=== PATIENT | female | born 1970 | race Caucasian/White ===

== ENCOUNTER → 2016-11-12 | Outpatient (REF) | payer BC | LOC: M SFHCWAGY 15:38 | PROVIDERS: ATTEND Nurse Practitioner Women's Health | DX: R87.610 Atypical squamous cells of undetermined significance on cytologic smear of cervix (ASC-US) (principal) ==

== ENCOUNTER → 2017-01-29 | Outpatient (REF) | payer BC | LOC: M LAB REF 18:27 | PROVIDERS: ATTEND Specialist | DX: R87.612 Low grade squamous intraepithelial lesion on cytologic smear of cervix (LGSIL) (principal) ==

== ENCOUNTER → 2017-10-10 | Outpatient (REF) | payer BC | LOC: M SFHCWAGY 10:57 | PROVIDERS: ATTEND Nurse Practitioner Women's Health | DX: Z01.419 Encounter for gynecological examination (general) (routine) without abnormal findings (principal); Z11.51 Encounter for screening for human papillomavirus (HPV); R85.610 Atypical squamous cells of undetermined significance on cytologic smear of anus (ASC-US) ==

== ENCOUNTER → 2017-10-10 | Outpatient (CLI) | payer BC ==
--- NOTE | 2017-10-10 12:48 | REPMRS ---
Patient History The patient states she had a clinical breast exam in 09/2017. Patient is postmenopausal and has history of other cancer at age 44. Family history of colorectal cancer in maternal uncle. Digital Woman Screen Mammo: October 10, 2017 - Exam #: [id number] Bilateral CC and MLO view(s) were taken. Technologist: Yanelis Faria, Technologist Prior study comparison: October 10, 2016, digital woman screen mammo performed at [facility]. October 13, 2015, digital woman screen mammo performed at [facility] to [facility]. FINDINGS: There are scattered fibroglandular densities. There has been no change in the appearance of the mammogram from the prior studies. There is a mild amount of residual fibroglandular tissue which is fairly symmetric. There is no interval development of dominant mass, architectural distortion, or clustered microcalcification suggestive of malignancy. ASSESSMENT: BI-RADS/ACR category 1 mammogram. Negative. Recommendation Routine screening mammogram in 1 year (for women over age 40). This mammogram was interpreted with the aid of an FDA-approved computer-aided dectection system. Electronically Signed By: Farrukh Hendricks MD 10/10/17 [id number]
== END ==
LOC: M WHC 10:06
PROVIDERS: ATTEND Nurse Practitioner Women's Health
DX: Z12.31 Encounter for screening mammogram for malignant neoplasm of breast (principal); Z78.0 Asymptomatic menopausal state

== ENCOUNTER → 2018-09-04 | Outpatient (REF) | payer BC ==
[2018-09-04 12:37] LABS: ALBUMIN 3.7 GM/DL (3.2-5.2); ALBUMIN/GLOBULIN RATIO 1.32 (1.00-1.93); ALKALINE PHOSPHATASE 63 U/L (45-117); ALT/SGPT 16 U/L (12-78); ANION GAP 7 MEQ/L (8-16); AST/SGOT 12 U/L (7-37); BILIRUBIN,TOTAL 0.4 MG/DL (0.2-1.0); BLOOD UREA NITROGEN 18 MG/DL (7-18); CALCIUM LEVEL 9.2 MG/DL (8.5-10.1); CARBON DIOXIDE LEVEL 28 MEQ/L (21-32); CHLORIDE LEVEL 105 MEQ/L (98-107); CHOLESTEROL LEVEL 176 MG/DL (<200); CHOLESTEROL RISK RATIO 2.983 (<5); CREATININE FOR GFR 0.72 MG/DL (0.55-1.30); GLOMERULAR FILTRATION RATE > 60.0 (>58); GLUCOSE, FASTING 90 MG/DL (70-100); HDL CHOLESTEROL 59 MG/DL (>40); LDL CHOLESTEROL 102 MG/DL (<100); NON-HDL-C 117 MG/DL; POTASSIUM SERUM 4.3 MEQ/L (3.5-5.1); SODIUM LEVEL 140 MEQ/L (136-145); TOTAL PROTEIN 6.5 GM/DL (6.4-8.2); TRIGLYCERIDES LEVEL 74 MG/DL (<150)
== END ==
LOC: M SFHCLERA 08:51
DX: Z00.00 Encounter for general adult medical examination without abnormal findings (principal)
CPT/HCPCS: 84443

== ENCOUNTER → 2018-10-13 | Outpatient (CLI) | payer BC ==
--- NOTE | 2018-10-13 15:56 | REPMRS ---
Patient History The patient states she had a clinical breast exam in 09/2018. Patient is postmenopausal and has history of other cancer at age 44. Family history of colorectal cancer in maternal uncle. No Hormone Replacement Therapy Digital Woman Screen Mammo: October 13, 2018 - Exam #: [id number] Bilateral CC and MLO view(s) were taken. Technologist: Yanelis Faria, Technologist Prior study comparison: October 10, 2017, digital woman screen mammo performed at [facility]. October 10, 2016, digital woman screen mammo performed at [facility]. October 13, 2015, digital woman screen mammo performed at [facility]. FINDINGS: There are scattered fibroglandular densities. There has been no change in the appearance of the mammogram from the prior studies. There is a mild amount of scattered fibroglandular density which is fairly symmetric. There is no interval development of dominant mass, architectural distortion, or clustered microcalcification suggestive of malignancy. 3-D tomosynthesis shows no additional findings. Assessment: BI-RADS/ACR category 1 mammogram. Negative. Recommendation Routine screening mammogram of both breasts in 1 year (for women over age 40). This patient's Lifetime Breast Cancer RIsk is estimated at 6.9 %. This mammogram was interpreted with the aid of an FDA-approved computer-aided dectection system. Electronically Signed By: Ovi Keita MD 10/13/18 [id number]
== END ==
LOC: M WHC 10:22
PROVIDERS: ATTEND Nurse Practitioner Women's Health
DX: Z12.31 Encounter for screening mammogram for malignant neoplasm of breast (principal); Z78.0 Asymptomatic menopausal state; Z85.9 Personal history of malignant neoplasm, unspecified

== ENCOUNTER → 2018-10-13 | Outpatient (REF) | payer BC ==
[2018-10-16 14:15] LABS: HPV HYBRID CAPTURE II Negative (Negative)
== END ==
LOC: M SFHCWAGY 11:07
PROVIDERS: ATTEND Nurse Practitioner Women's Health
DX: Z12.4 Encounter for screening for malignant neoplasm of cervix (principal)
CPT/HCPCS: 87624; G0123

== ENCOUNTER → 2018-11-25 | Outpatient (CLI) | payer BC ==
--- NOTE | 2018-11-25 11:40 | REP ---
Clinical: Fever of unknown origin . Comparison: None . Technique: PA and lateral. Findings: The mediastinum and cardiac silhouette are normal. The lung daily are clear and without acute consolidation, effusion, or pneumothorax. The skeletal structures are intact and normal. Impression: 1. No acute cardiopulmonary process. Electronically Signed by Levon Ricketts MD 11/25/2018 11:32 A
== END ==
LOC: M LRY 11:16
PROVIDERS: ATTEND Nurse Practitioner Family
DX: R50.9 Fever, unspecified (principal)

== ENCOUNTER 2019-08-15 23:04 | Emergency (ER) | payer BC ==
[~2019-08-15] VITALS: Ht 152.4 cm; Wt 63.6 kg
[2019-08-15] MEDS ORDERED: NAPR220C14 PO (23:32)
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
[2019-08-16 03:17] VITALS: BP 119/74
== END 2019-08-16 03:40 | disposition home or self-care (01) ==
LOC: M ED 23:04
DX: S50.01XA Contusion of right elbow, initial encounter (principal); S30.811A Abrasion of abdominal wall, initial encounter; S20.229A Contusion of unspecified back wall of thorax, initial encounter; S10.83XA Contusion of other specified part of neck, initial encounter; S00.83XA Contusion of other part of head, initial encounter; Y04.0XXA Assault by unarmed brawl or fight, initial encounter; Y07.03 Male partner, perpetrator of maltreatment and neglect; Y92.009 Unspecified place in unspecified non-institutional (private) residence as the place of occurrence of the external cause; M50.30 Other cervical disc degeneration, unspecified cervical region

== ENCOUNTER → 2019-10-13 | Outpatient (REF) | payer BC ==
[~2019-10-13] MED LIST: NAPR220C14 PO
[2019-10-13 16:39] LABS: HEMATOCRIT 42.8 % (36.0-47.0); HEMOGLOBIN 13.6 g/dl (12.0-15.5); MEAN CORPUSCULAR HEMOGLOBIN 28.8 pg (27.0-33.0); MEAN CORPUSCULAR HGB CONC 31.8 g/dl (32.0-36.5); MEAN CORPUSCULAR VOLUME 90.5 fl (80.0-96.0); PLATELET COUNT, AUTOMATED 230 10^3/uL (150-450); RED BLOOD COUNT 4.73 10^6/uL (4.00-5.40); WHITE BLOOD COUNT 4.6 10^3/uL (4.0-10.0)
[2019-10-13 16:48] LABS: ALBUMIN 4.3 GM/DL (3.2-5.2); ALT/SGPT 18 U/L (12-78); BILIRUBIN,TOTAL 0.5 MG/DL (0.2-1.0); BLOOD UREA NITROGEN 14 MG/DL (7-18); CALCIUM LEVEL 9.4 MG/DL (8.5-10.1); CARBON DIOXIDE LEVEL 30 MEQ/L (21-32); CHLORIDE LEVEL 108 MEQ/L (98-107); CHOLESTEROL LEVEL 174 MG/DL (<200); CREATININE FOR GFR 0.84 MG/DL (0.55-1.30); GLOMERULAR FILTRATION RATE > 60.0 (>51); GLUCOSE, FASTING 91 MG/DL (70-100); HDL CHOLESTEROL 58 MG/DL (>40); LDL CHOLESTEROL 96 MG/DL (<100); NON-HDL-C 116 MG/DL; POTASSIUM SERUM 4.7 MEQ/L (3.5-5.1); SODIUM LEVEL 143 MEQ/L (136-145); TOTAL PROTEIN 7.3 GM/DL (6.4-8.2); TRIGLYCERIDES LEVEL 98 MG/DL (<150)
== END ==
LOC: M SFHCCLAY 10:15
PROVIDERS: ATTEND Family Medicine
DX: Z00.00 Encounter for general adult medical examination without abnormal findings (principal); Z12.11 Encounter for screening for malignant neoplasm of colon; E78.00 Pure hypercholesterolemia, unspecified

== ENCOUNTER → 2019-10-14 | Outpatient (REF) | payer BC | LOC: M PLALAB 13:21 | PROVIDERS: ATTEND Nurse Practitioner Women's Health | DX: Z12.4 Encounter for screening for malignant neoplasm of cervix (principal) | CPT/HCPCS: 87624; G0123 ==

== ENCOUNTER → 2019-10-14 | Outpatient (CLI) | payer BC ==
--- NOTE | 2019-10-14 15:02 | REPMRS ---
Patient History The patient states she had a clinical breast exam in 2018. Family history of colorectal cancer in maternal uncle. No Hormone Replacement Therapy Digital Woman Screen Mammo: October 14, 2019 - Exam #: [id number] Bilateral CC and MLO view(s) were taken. Technologist: Rachna Rajan, Technologist Prior study comparison: October 13, 2018, bilateral digital woman screen mammo performed at [facility]. October 10, 2017, digital woman screen mammo performed at [facility] [place] [facility]. October 10, 2016, digital woman screen mammo performed at [facility]. FINDINGS: There are scattered fibroglandular densities. There has been no change in the appearance of the mammogram from the prior studies. There is a mild amount of scattered fibroglandular density which is fairly symmetric. There is no interval development of dominant mass, architectural distortion, or grouped microcalcification suggestive of malignancy. 3-D tomosynthesis shows no additional findings. Assessment: BI-RADS/ACR category 1 mammogram. Negative Mammogram. Recommendation Routine screening mammogram of both breasts in 1 year (for women over age 40). This patient's Lifetime Breast Cancer Risk is estimated at 6.8 %. This mammogram was interpreted with the aid of an FDA-approved computer-aided dectection system. Electronically Signed By: Ovi Keita MD 10/14/19 [id number]
== END ==
LOC: M WHC 12:43
PROVIDERS: ATTEND Nurse Practitioner Women's Health
DX: Z12.31 Encounter for screening mammogram for malignant neoplasm of breast (principal)

== ENCOUNTER → 2020-08-11 | Outpatient (REF) | payer BC ==
[~2020-08-11] MED LIST changes: +CYAN100049 PO; +MULTCAP PO
[2020-08-11 12:38] LABS: HEMATOCRIT 40.2 % (36.0-47.0); HEMOGLOBIN 13.1 g/dl (12.0-15.5); MEAN CORPUSCULAR HEMOGLOBIN 28.8 pg (27.0-33.0); MEAN CORPUSCULAR HGB CONC 32.6 g/dl (32.0-36.5); MEAN CORPUSCULAR VOLUME 88.4 fl (80.0-96.0); PLATELET COUNT, AUTOMATED 211 10^3/uL (150-450); RED BLOOD COUNT 4.55 10^6/uL (4.00-5.40); WHITE BLOOD COUNT 3.7 10^3/uL (4.0-10.0)
[2020-08-11 13:03] LABS: BLOOD UREA NITROGEN 13 MG/DL (7-18); CALCIUM LEVEL 8.9 MG/DL (8.5-10.1); CARBON DIOXIDE LEVEL 28 MEQ/L (21-32); CHLORIDE LEVEL 109 MEQ/L (98-107); CREATININE FOR GFR 0.75 MG/DL (0.55-1.30); GLOMERULAR FILTRATION RATE > 60.0 (>51); GLUCOSE, FASTING 87 MG/DL (70-100); POTASSIUM SERUM 4.6 MEQ/L (3.5-5.1); SODIUM LEVEL 141 MEQ/L (136-145)
== END ==
LOC: M SFHCCLAY 07:12
PROVIDERS: ATTEND Family Medicine
DX: E78.00 Pure hypercholesterolemia, unspecified (principal); G89.29 Other chronic pain

== ENCOUNTER → 2020-08-18 | Outpatient (REF) | payer BC | LOC: M SFHCCLAY 07:12 | PROVIDERS: ATTEND Family Medicine | DX: Z01.818 Encounter for other preprocedural examination (principal); E78.00 Pure hypercholesterolemia, unspecified ==

== ENCOUNTER → 2020-08-25 | Outpatient (CLI) | payer BC | LOC: M LABSMTC 10:51 | PROVIDERS: ATTEND Anesthesiology | DX: Z11.59 Encounter for screening for other viral diseases (principal); Z20.828 Contact with and (suspected) exposure to other viral communicable diseases | CPT/HCPCS: C9803; U0003 ==

== ENCOUNTER → 2020-09-15 | Outpatient (REF) | payer BC ==
[~2020-09-15] MED LIST changes: +OXYC1TAB23 PO; +ZOFR4TAB16 PO
[2020-09-16 11:31] LABS: HEMATOCRIT 40.8 % (36.0-47.0); HEMOGLOBIN 12.9 g/dl (12.0-15.5); MEAN CORPUSCULAR HEMOGLOBIN 28.2 pg (27.0-33.0); MEAN CORPUSCULAR HGB CONC 31.6 g/dl (32.0-36.5); MEAN CORPUSCULAR VOLUME 89.1 fl (80.0-96.0); PLATELET COUNT, AUTOMATED 224 10^3/uL (150-450); RED BLOOD COUNT 4.58 10^6/uL (4.00-5.40); WHITE BLOOD COUNT 5.1 10^3/uL (4.0-10.0)
[2020-09-16 12:04] LABS: BLOOD UREA NITROGEN 11 MG/DL (7-18); CALCIUM LEVEL 9.1 MG/DL (8.5-10.1); CARBON DIOXIDE LEVEL 30 MEQ/L (21-32); CHLORIDE LEVEL 106 MEQ/L (98-107); CREATININE FOR GFR 0.87 MG/DL (0.55-1.30); GLOMERULAR FILTRATION RATE > 60.0 (>51); GLUCOSE, FASTING 80 MG/DL (70-100); POTASSIUM SERUM 4.8 MEQ/L (3.5-5.1); SODIUM LEVEL 141 MEQ/L (136-145)
== END ==
LOC: M LABDRAWC 10:51
PROVIDERS: ATTEND Plastic Surgery Surgery of the Hand
DX: I78.1 Nevus, non-neoplastic (principal); N64.81 Ptosis of breast; L98.7 Excessive and redundant skin and subcutaneous tissue

== ENCOUNTER → 2020-09-15 | Outpatient (CLI) | payer BC ==
[~2020-09-15] MED LIST changes: -OXYC1TAB23 PO; -ZOFR4TAB16 PO
== END ==
LOC: M LABSMTC 10:20
PROVIDERS: ATTEND Anesthesiology
DX: Z01.812 Encounter for preprocedural laboratory examination (principal); Z20.828 Contact with and (suspected) exposure to other viral communicable diseases

== ENCOUNTER 2020-09-20 07:02 | Day surgery (SDC) | payer SELFPAY ==
[~2020-09-20] VITALS: Ht 152.4 cm; Wt 65.3 kg
[~2020-09-20 07:02] MED LIST changes: +BACITRACIN PWD 50,000 UNITS VIAL As Ordered ONE; +BUPIVACAINE LIPOSOME/PF 1.3% 20ML VIAL (13.3MG/ML)(EXPAREL)(C9290 PER1MG) As Ordered ONE; +HEPARIN SOD (PORCINE) 5000UNITS/ML 1ML VIAL/SYRINGE SQ ONE; +LIDOCAINE 1% MDV 20ML VIAL SQ PRN; +LR 1,000 ML IV ONE; +ceFAZolin SOD 1 GM in D5W MINI-BAG PLUS 50 ML IV ONE
[2020-09-20] MEDS ORDERED: MIDAZOLAM INJ 2MG/2ML VIAL (J2250 PER 1MG) As Ordered ONE (07:54)
[2020-09-20] MEDS ORDERED: propofoL 200 MG/20 ML VIAL As Ordered ONE ×2 (07:54→10:07)
[2020-09-20] MEDS ORDERED: LIDOCAINE 2% 100MG/5ML SDV (FOR ANES.) As Ordered ONE (07:54)
[2020-09-20] MEDS ORDERED: dexameTHASONE 4 MG/ML 1ML VIAL (J1100 PER 1MG) As Ordered ONE (07:54)
[2020-09-20] MEDS ORDERED: ROCURONIUM BROMIDE 50 MG/5 ML VIAL As Ordered ONE ×3 (07:54→11:37)
[2020-09-20] MEDS ORDERED: METOCLOPRAMIDE INJ 10MG/2ML VIAL (J2765 PER 1) As Ordered ONE (07:54)
[2020-09-20] MEDS ORDERED: fentaNYL 250 MCG/5 ML INJECTION (J3010) As Ordered ONE (07:54)
[2020-09-20] MEDS ORDERED: ONDANSETRON 4MG/2ML VIAL As Ordered ONE ×2 (07:54→09:46)
[2020-09-20] MEDS ORDERED: EPINEPHrine INJ 1 MG/ML 1ML AMP As Ordered ONE (08:04)
[2020-09-20] MEDS ORDERED: LIDOCAINE 1% MDV 20ML VIAL As Ordered ONE (08:04)
[2020-09-20] MEDS ORDERED: SCOPOLAMINE 1MG TRANSDERMAL PATCH TOP ONE (08:15)
[2020-09-20] MEDS ORDERED: LACRILUBE (AKWA TEARS) OPHTH OINT 3.5 GM As Ordered ONE (08:50)
[2020-09-20] MEDS ORDERED: ePHEDrine SULFATE 25 MG/5 ML(5MG/ML) SYRINGE As Ordered ONE ×2 (09:09→11:30)
[2020-09-20] MEDS ORDERED: HYDROmorphone HCL 2 MG/ML 1ML VIAL (J1170) As Ordered ONE (09:46)
[2020-09-20] MEDS ORDERED: SUGAMMADEX SODIUM 500 MG/5 ML VIAL (BRIDION) As Ordered ONE (09:46)
[2020-09-20] MEDS ORDERED: ACETAMINOPHEN 1000MG 100ML IV BTL (OFIRMEV) (J0131 PER 10MG) As Ordered ONE (09:46)
[2020-09-20] MEDS ORDERED: GLYCOPYRROLATE INJ 0.2 MG/ML 2 ML VIAL As Ordered ONE (11:34)
[2020-09-20] MEDS ORDERED: ceFAZolin 1GM VIAL (J0690 PER 500MG) As Ordered ONE (12:48)
--- NOTE | 2020-09-20 13:33 | POST-OPPD ---
Postoperative Procedure Note Date Of Procedure: Sep 20, 2020 PREOPERATIVE DIAGNOSIS: Bilateral breast ptosis, panniculitis, Left upper arm lipoma, abdominal pigmented lesion. POSTOPERATIVE DIAGNOSIS: same FINDINGS: Breast ptosis, pannus, abdominal pigmented lesions, Left upper arm mass PROCEDURE: Abdominoplasty, bilateral mastopexy, excision left upper arm lipoma, and pigmented lesions upper abdomen. SURGEON: Dr Marino PERSONNEL WORKER: Dr Carter ANESTHESIA: General SPECIMENS: Left arm mass, Abdominal pigmented lesions, Pannus ESTIMATED BLOOD LOSS: 100 cc REPLACED: none DRAINS: 10 mm NATALIIA drain x 4 COMPLICATIONS: none POSTOPERATIVE CONDITION: stable BANDAR MARINO DO Sep 20, 2020 13:33
[2020-09-20] MEDS: LR 1,000 ML IV SCH (13:39)
[2020-09-20] MEDS ORDERED: MORPHINE 4 MG/ML 1ML VIAL/SYRINGE (J2270) IV PRN (13:45)
[2020-09-20] MEDS ORDERED: ACETAMINOPHEN TAB 650MG DOSE (2X325MG) PO PRN (13:45)
[2020-09-20] MEDS ORDERED: fentaNYL 100 MCG/2 ML INJECTION (J3010) As Ordered ONE (13:48)
[2020-09-20] MEDS: fentaNYL 100 MCG/2 ML INJECTION (J3010) IV PRN ×4 (13:50→14:28)
[2020-09-20] MEDS ORDERED: LR 1,000 ML IV SCH (14:00)
[2020-09-20] MEDS ORDERED: METOCLOPRAMIDE INJ 10MG/2ML VIAL (J2765 PER 1) IV PRN (14:00)
[2020-09-20] MEDS ORDERED: ONDANSETRON 4MG/2ML VIAL IV PRN (14:00)
[2020-09-20] MEDS ORDERED: PERCOCET 5MG/325MG TAB PO PRN (14:00)
[2020-09-20] MEDS ORDERED: HYDROMORPHONE HCL 0.5 MG/ 0.5 ML SYRINGE (J1170 PER 1) IV PRN (15:00)
[2020-09-20] MEDS: ONDANSETRON 4MG/2ML VIAL IV PRN ×2 (16:19→20:48)
[2020-09-20] MEDS: ceFAZolin SOD 1 GM in D5W MINI-BAG PLUS 50 ML IV SCH (16:19)
[2020-09-20 16:30] VITALS: BP 107/64
[2020-09-20 17:00] VITALS: BP 111/69
[2020-09-20 18:00] VITALS: BP 104/68
[2020-09-20 19:00] VITALS: BP 102/69
[2020-09-20 20:00] VITALS: BP 109/65
[2020-09-20] MEDS: PERCOCET 5MG/325MG TAB PO PRN (20:48)
[2020-09-20 21:00] VITALS: BP_SYST 100; BP_DIAS 57; BP_DIAS 58
[2020-09-21 01:14] VITALS: BP 113/64
[2020-09-21] MEDS: ceFAZolin SOD 1 GM in D5W MINI-BAG PLUS 50 ML IV SCH ×2 (01:23→08:23)
[2020-09-21] MEDS: PERCOCET 5MG/325MG TAB PO PRN ×3 (01:25→13:14)
[2020-09-21 05:34] VITALS: BP 105/58
[2020-09-21] MEDS: LR 1,000 ML IV SCH (05:36)
[2020-09-21] MEDS: ONDANSETRON 4MG/2ML VIAL IV PRN ×2 (07:24→13:14)
[2020-09-21 10:00] VITALS: BP 105/73
--- NOTE | 2020-09-21 10:11 | IPNPDOC ---
Subjective General Date Seen: Sep 21, 2020 Subject Chief Complaint/History The patient is a 50-year-old female admitted with a reason for visit of Excessive And Redundant Skin & Subcutaneous Tissue. Patient s/p abdominoplasty, bilateral mastopexy, left upper arm lipoma removal POD 1. Doing well. Ambulated, barker out, urinated well. Pain controlled with Percocet. Nausea improved. No other complains. Current Medications Current Medications Current Medications Medications (Trade) Dose Ordered Sig/Lu Route PRN Reason Start Time Stop Time Status Last Admin Dose Admin Acetaminophen (Tylenol Tab) 650 mg Q6H PRN PO MILD PAIN (PS 1-4) 09/20/20 13:45 Cefazolin Sodium 1 gm/Dextrose 50 ml @ 100 mls/hr Q8H IV 09/20/20 17:00 09/21/20 08:23 Fentanyl Citrate (Sublimaze) 25 mcg Q5MP PRN IV PAIN LEVEL 5-10 09/20/20 14:00 09/20/20 14:30 DC 09/20/20 13:55 Hydromorphone HCl (Dilaudid) 0.4 mg Q5MP PRN IV PAIN LEVEL 4-7 09/20/20 15:00 09/20/20 16:00 DC 09/20/20 14:53 Lactated Ringer's 1,000 ml @ 75 mls/hr [id number] IV 09/20/20 13:39 09/21/20 05:36 Lactated Ringer's 1,000 ml @ 100 mls/hr Q10H IV 09/20/20 14:00 09/20/20 15:00 DC Lidocaine HCl (LIDOCAINE 1% MDV 20ml) 0.1 ml ONCE PRN SQ DISCOMFORT BEFORE IV START 09/20/20 06:00 09/20/20 14:46 DC Metoclopramide HCl (REGLAN INJection) 10 mg Q6HP PRN IV NAUSEA OR VOMITING 09/20/20 14:00 09/20/20 14:59 DC 09/20/20 14:59 Morphine Sulfate (Morphine Sulfate Inj) 4 mg Q4HP PRN IV SEVERE PAIN (PS 8-10) 09/20/20 13:45 Ondansetron HCl (ZOFRAN INJection) 4 mg Q4H PRN IV NAUSEA OR VOMITING 09/20/20 13:45 09/21/20 07:24 Ondansetron HCl (ZOFRAN INJection) 4 mg Q4HP PRN IV NAUSEA OR VOMITING 09/20/20 14:00 09/20/20 15:00 DC Oxycodone/ Acetaminophen (Percocet 5mg/ 325mg Tablet) 1 tab ASDIRECTED PRN PO PAIN LEVEL 1-4 09/20/20 14:00 09/20/20 15:00 DC 09/20/20 14:13 Oxycodone/ Acetaminophen (Percocet 5mg/ 325mg Tablet) 2 tab Q4HP PRN PO PAIN LEVEL 4-7 09/20/20 13:45 09/21/20 07:24 Allergies Coded Allergies: No Known Allergies (Unverified , 09/19/20) Objective Physical Examination Examination GENERAL APPEARANCE:Patient seen, laying in bed, awake, alert, and oriented. Comfortable, in no acute distress. SKIN: Warm and moist. BREAST: Right and left soft, non-tender incisions intact. NATALIIA drains: 5/5 cc/24 hr. NAC: Viable, warm, symmetrical, mild post-op ecchymosis, no expanding hematoma. LUNGS: Clear to auscultation bilaterally. No wheezing appreciated. HEART: No chest wall abnormalities. Regular rate and rhythm with no murmurs appreciated. ABDOMEN: Abdomen is soft, non-tender, non-distended. Incision intact. Umbilicus viable. NATALIIA drains with serosanguinous drainage. 50/40 cc/24hr each drain. EXTREMITIES: No edema identified. No calf tenderness. Vital Signs Vital Signs Date Time Temp Pulse Resp B/P (MAP) Pulse Ox O2 Delivery O2 Flow Rate FiO2 09/21/20 07:54 18 09/21/20 05:34 98.9 70 105/58 (74) 98 Room Air 09/20/20 14:10 2 I&Os I&O- Last 24 Hours up to 6 AM 09/21/20 06:00 Intake Total 3830 ml Output Total 1770 ml Balance 2060 ml Impression S/p abdominoplasty, mastopexy, lipoma removal. Doing well. Stable for discharge tonight. NATALIIA drains to go home, monitor. Dressing changed Keep abdominal binder, bra on at all times. F/up plastic surgery next week Plan / VTE VTE Prophylaxis Ordered?: Yes BANDAR MARINO DO Sep 21, 2020 10:11
[2020-09-21] MEDS ORDERED: ZOFR4TAB16 PO (10:15)
[2020-09-21] MEDS ORDERED: OXYC1TAB23 PO (10:15)
--- NOTE | 2020-10-12 16:47 | RO ---
OPERATIVE NOTE DATE OF OPERATION: 09/20/2020 PREOPERATIVE DIAGNOSIS: Bilateral breast ptosis, panniculitis, left upper arm lipoma and abdominal lesions x2. POSTOPERATIVE DIAGNOSIS: Bilateral breast ptosis, panniculitis, left upper arm lipoma and abdominal lesions x2. FINDINGS: Breast ptosis, pannus, abdominal pigmented lesions and left upper arm mass. PROCEDURE: Abdominoplasty, bilateral mastopexy, excision, left upper arm lipoma and pigmented lesions, upper abdomen. ATTENDING SURGEON: Jaki Renteria DO INVENTORY CONTROL SUPERVISOR: Dr. Carter ANESTHESIA: General. SPECIMEN: Left arm mass and abdominal pigmented lesion and pannus. ESTIMATED BLOOD LOSS: 100 mL REPLACEMENT: No replacements. DRAINS: 10 mm Stanley-Ponce drains x4. COMPLCATIONS: None. PROCEDURE: This is a 50-year-old female who was complaining of tissue loss and lipodystrophy, status post weight loss. She has mild pannus that she would like to take care of as well as bilateral breast ptosis. The patient is also finding that she has a mass on the left upper arm which has recently grown and it is causing her discomfort. She would like to have it removed and she also has two pigmented lesions in her upper abdomen that she would like to remove in the same surgery if possible. Risks, benefits and alternatives were discussed with the patient regarding all those procedures and she ready to proceed. The day of surgery, she was marked in an upright position about her abdominoplasty and her breast and then she was brought into the operating room, placed in supine position. Preoperative antibiotics were given and general anesthesia is induced. We introduced a Joseph catheter in the bladder without any difficulties with clear yellow urine and then she was prepped and draped in the usual sterile fashion. We started our procedure on the right side. The nipple areolar complex was outlined 42 mm in diameter and then we made our incision around the nipple areola and midline. The central pedicle was then created using electrocautery and breast was then moved to its new location about 20 cm from the sternal notch. Hemostasis was obtained with electrocautery. Exparel was used as a block to the pectoralis and throughout the breast and then we started our closing at the pillars. Excess tissue was measured, tailored and removed. The vertical limb was 7 cm. Excess tissue was measured and resected, creating the horizontal scar which was closed with 3-0 Monocryl sutures. A 10 mm Stanley-Ponce drain was placed through the lateral portion of the horizontal incision. The nipple areolar complex was sutured in place with 3-0 and 4-0 Monocryls and 5-0 plain gut sutures. While my hospital clinic assistant is closing the nipple areola, I started on the opposite side, a similar procedure carried out on left side with nipple areolar complex, outlining it 42 mm in diameter. The central pedicle is then created and then the breast is moved up en bloc to its new location for the nipple areola at 20 cm from the sternal notch. The pillars are closed with interrupted 3-0 Monocryl sutures. Excess is tailored and resected, mirroring the right side. The vertical limb was 7 cm. Excess inferiorly is resected, creating the horizontal scar and 10 mm Stanley-Ponce drain is placed through the lateral portion. The nipple areola complex is sutured in place with 3-0 and 4-0 Monocryl sutures and the 5-0 plain running stitch. While having that completed, we also made a 2 cm incision on the left upper arm and the mass is easily identified subcutaneously and it is completely resected. It is a fat containing, encapsulated tumor which is removed. The wound is irrigated and closed in layers by hospital clinic assistant with 3-0 Monocryl sutures. Then we turned our attention to the abdominal portion of our procedure. The two pigmented lesions were resected in elliptical fashion and sent to pathology and then the lower abdominal incision was carried out 6 cm from the labial crease. Sharp dissection with electrocautery and PEAK cautery is done until the rectus fascia is identified and then we continued our dissection superiorly until the umbilicus. The rhomboid incision is made around the umbilicus and then we continued our dissection, lifting up the flap until the xiphoid process superiorly and the costal margins laterally. Hemostasis was obtained using electrocautery and the rectus muscle was viewed. There was mild diastasis which was reduced with interrupted 0 Vicryl sutures and a running #1 PDS loop suture. We started at the xiphoid, going down to the pubic bone. The knot is buried with a 3-0 Vicryl suture. The patient is placed in the reflexed position. Block is given in the rectus fascia with Exparel, remaining 10 mL. Then we measured excess tissue from the flap and it was resected using electrocautery and we started closure (cut out) Stanley-Ponce drains were placed through the lateral portion of the incision directed superiorly and continuing closure with interrupted 3-0 Monocryl sutures. A small rhomboid opening was made in the flap and umbilicus was brought into view which also is in good viable condition, closed in layers with 3-0 and 5-0 Monocryl sutures and 5-0 plain gut sutures. Prineo dressing was placed on abdominal lower portion, vertical and horizontal scar of the breast, also on the arm and a Xeroform was used for the umbilical and for the nipple areolar complexes. Bulky dressing, surgical bra and an abdominal binder were placed. The patient is extubated in the operating room without any difficulty, transferred to recovery room in stable condition.
== END 2020-09-21 14:15 | disposition home or self-care (01) ==
LOC: M SDC 07:02 → M MS5PR 16:00 → M SDC 09-21 14:15
PROVIDERS: ATTEND Plastic Surgery Surgery of the Hand
DX: N64.81 Ptosis of breast (principal); E65 Localized adiposity; D17.22 Benign lipomatous neoplasm of skin and subcutaneous tissue of left arm; D22.5 Melanocytic nevi of trunk; S49.92XD Unspecified injury of left shoulder and upper arm, subsequent encounter; Z78.0 Asymptomatic menopausal state; Z98.51 Tubal ligation status
CPT/HCPCS: 15830; 19318; 24075; 88302; 88304; 88305; C9290; J0131; J0171; J0690; J1100; J1170; J1644; J2250; J2405; J2765; J3010

== ENCOUNTER → 2021-03-14 | Outpatient (REF) | payer BC ==
[~2021-03-14] MED LIST changes: -BACITRACIN PWD 50,000 UNITS VIAL As Ordered ONE; -BUPIVACAINE LIPOSOME/PF 1.3% 20ML VIAL (13.3MG/ML)(EXPAREL)(C9290 PER1MG) As Ordered ONE; -HEPARIN SOD (PORCINE) 5000UNITS/ML 1ML VIAL/SYRINGE SQ ONE; -LIDOCAINE 1% MDV 20ML VIAL SQ PRN; -LR 1,000 ML IV ONE; +OXYC1TAB23 PO; +ZOFR4TAB16 PO; -ceFAZolin SOD 1 GM in D5W MINI-BAG PLUS 50 ML IV ONE
== END ==
LOC: M SFHCWAGY 18:50
PROVIDERS: ATTEND Nurse Practitioner Women's Health
DX: Z12.4 Encounter for screening for malignant neoplasm of cervix (principal); N88.8 Other specified noninflammatory disorders of cervix uteri
CPT/HCPCS: 87624; G0123

== ENCOUNTER → 2021-03-14 | Outpatient (CLI) | payer BC ==
--- NOTE | 2021-03-14 14:45 | REPMRS ---
Patient History The patient states she had a clinical breast exam in 02/2021. Patient is postmenopausal and has history of other cancer at age 44. Family history of colorectal cancer in maternal uncle. Reductions of both breasts, September 20, 2020. No Hormone Replacement Therapy Patient states no breast complaints today. Patient has signed MRS History Sheet. Digital Woman Screen Mammo: March 14, 2021 - Exam #: [id number] Bilateral CC and MLO view(s) were taken. Technologist: Yanelis Faria, Technologist Prior study comparison: October 14, 2019, bilateral digital woman screen mammo performed at [facility]. October 13, 2018, bilateral digital woman screen mammo performed at [facility]. October 10, 2017, digital woman screen mammo performed at [facility]. FINDINGS: There are scattered fibroglandular densities. The Volpara volumetric breast density category is:B. There has been no change in the appearance of the mammogram from the prior studies. There is a mild amount of scattered fibroglandular density which is fairly symmetric. There is no interval development of dominant mass, architectural distortion, or grouped microcalcification suggestive of malignancy. 3-D tomosynthesis shows no additional findings. Assessment: BI-RADS/ACR category 1 mammogram. Negative Mammogram. Recommendation Routine screening mammogram of both breasts in 1 year (for women over age 40). This patient's [facility] Lifetime Breast Cancer Risk is estimated at 6.6 %. This mammogram was interpreted with the aid of an FDA-approved computer-aided dectection system. Electronically Signed By: Ovi Keita MD 03/14/21 [id number]
== END ==
LOC: M WHC 13:05
PROVIDERS: ATTEND Nurse Practitioner Women's Health
DX: Z12.31 Encounter for screening mammogram for malignant neoplasm of breast (principal); Z78.0 Asymptomatic menopausal state; Z85.9 Personal history of malignant neoplasm, unspecified; Z80.8 Family history of malignant neoplasm of other organs or systems; Z98.890 Other specified postprocedural states

== ENCOUNTER → 2022-05-08 | Outpatient (REF) | payer BC ==
[2022-05-08 19:08] LABS: ALBUMIN 3.6 GM/DL (3.2-5.2); ALT/SGPT 21 U/L (12-78); BILIRUBIN,TOTAL 0.5 MG/DL (0.2-1.0); BLOOD UREA NITROGEN 14 MG/DL (7-18); CALCIUM LEVEL 8.9 MG/DL (8.5-10.1); CARBON DIOXIDE LEVEL 26 MEQ/L (21-32); CHLORIDE LEVEL 110 MEQ/L (98-107); CHOLESTEROL LEVEL 163 MG/DL (<200); CREATININE FOR GFR 0.76 MG/DL (0.55-1.30); GLOMERULAR FILTRATION RATE > 60.0 (>51); GLUCOSE, FASTING 84 MG/DL (70-100); HDL CHOLESTEROL 50 MG/DL (>40); LDL CHOLESTEROL 86 MG/DL (<100); NON-HDL-C 113 MG/DL; POTASSIUM SERUM 4.1 MEQ/L (3.5-5.1); SODIUM LEVEL 139 MEQ/L (136-145); TOTAL PROTEIN 6.4 GM/DL (6.4-8.2); TRIGLYCERIDES LEVEL 135 MG/DL (<150)
== END ==
LOC: M SFHCCLAY 10:36
PROVIDERS: ATTEND Family Medicine
DX: E78.00 Pure hypercholesterolemia, unspecified (principal)

== ENCOUNTER → 2023-12-16 | Outpatient (REF) | payer BC ==
[2023-12-16 17:37] LABS: BASO % 0.6 % (0.0-1.0); EOS # 0.4 10^3/uL (0.0-0.5); EOS % 8.4 % (0.0-3.0); HEMATOCRIT 43.4 % (36.0-47.0); HEMOGLOBIN 14.4 g/dl (12.0-15.5); LYMPH # 1.8 10^3/uL (1.5-5.0); MEAN CORPUSCULAR HEMOGLOBIN 28.9 pg (27.0-33.0); MEAN CORPUSCULAR HGB CONC 33.2 g/dl (32.0-36.5); MONO # 0.4 10^3/uL (0.0-0.8); MONO % 8.1 % (2.0-8.0); NEUTROPHILS # 2.4 10^3/uL (1.5-8.5); NEUTROPHILS % 47.7 % (36.0-66.0); PLATELET COUNT, AUTOMATED 233 10^3/uL (150-450); RED BLOOD COUNT 4.99 10^6/uL (4.00-5.40); WHITE BLOOD COUNT 5.1 10^3/uL (4.0-10.0)
[2023-12-16 18:08] LABS: THYROID STIMULATING HORMONE 1.863 uIU/ML (0.55-4.78); TOTAL 25(OH) VITAMIN D 21.6 NG/ML (20.0-100.0)
[2023-12-16 18:09] LABS: FERRITIN 57.8 NG/ML (7.3-270.7); TOTAL IRON BINDING CAPACITY 341 UG/DL (250-425)
[2023-12-16 18:10] LABS: CHOLESTEROL LEVEL 226 MG/DL (<200); CHOLESTEROL RISK RATIO 5.34 (<5); HDL CHOLESTEROL 42.3 MG/DL (>40); IRON (FE) 50 UG/DL (50-170); NON-HDL-C 183.7 MG/DL; PERCENT SATURATION 14.7 % (13.2-45.0); TRIGLYCERIDES LEVEL 418 MG/DL (<150)
[2023-12-16 18:11] LABS: VITAMIN B12 LEVEL 436 PG/ML (211-911)
[2023-12-16 18:12] LABS: FOLATE > 24.0 NG/ML (>5.4)
== END ==
LOC: M LAB REF 16:17
PROVIDERS: ATTEND Nurse Practitioner Family
DX: E78.00 Pure hypercholesterolemia, unspecified (principal); R53.83 Other fatigue; E66.9 Obesity, unspecified